=== PATIENT | male | born 1970 | race Caucasian/White ===

== ENCOUNTER → 2018-02-02 | Outpatient (CLI) | payer OTHER ==
--- NOTE | 2018-02-02 14:43 | MR ---
EXAMINATION TYPE: MR shoulder RT wo con DATE OF EXAM: 02/02/2018 COMPARISON: NONE HISTORY: Right shoulder pain TECHNIQUE: Multiplanar, multisequence imaging of the right shoulder is performed without contrast. FINDINGS: Rotator Cuff: There is abnormal increased thickening and fluid signal associated with the rotator cuf f at its insertion. Partial-thickness tear, undersurface tear may be present seen best on coronal allison ge #15. Acromioclavicular Joint: Arthropathy is present causing some mass effect on the musculotendinous junc tion of supraspinatus Glenohumeral Joint: Intact, there is some spurring the humeral head, subchondral geode formation invo lving the bony labrum may be present, susceptibility artifact is present likely due to prior surgery, correlate with plain film. Labrum: Inferior labrum is not well defined, suspect remodeling of the bony labrum due to osteoarthri tic change. There is some linear increased signal involving the superior labrum although this may rep resent some labral foramen rather than labral tear, some abnormal signal is present in the anterior l abrum, difficult to exclude a labral tear Biceps Tendon: Shows a normal position. There is fluid signal along the long head of biceps tendon Bone marrow signal: Pseudocysts present within the humeral head. Other: Suspect a distal acromial spur, fluid signal present in the subacromial subdeltoid bursa. Ther e is a joint effusion present. IMPRESSION: Postop changes. Correlate with plain film. Suspect secondary osteoarthritic change. There is tendinos is, undersurface tear of the rotator cuff tendon suspected, correlate for impingement. Difficult to e xclude labral tear as described. Joint effusion. Additional findings above.
== END | disposition home or self-care (01) ==
LOC: RADMRIMAIN 12:46
PROVIDERS: ATTEND Orthopaedic Surgery Sports Medicine
DX: M25.411 Effusion, right shoulder (principal); Z98.890 Other specified postprocedural states